=== PATIENT | male | born 1960 | race African-American/Black ===

== ENCOUNTER 2019-12-27 13:57 | Emergency (ER) | payer MEDICAID ==
[~2019-12-27] VITALS: Ht 190.5 cm; Wt 109.0 kg
[2019-12-27] MEDS ORDERED: KETOROLAC 60MG/2ML VIAL IM ONE (14:30)
[2019-12-27] MEDS ORDERED: HYDROCODONE/ACETAMINOPHEN 5/325MG TABLET PO ONE (14:30)
[2019-12-27] MEDS ORDERED: DIAZEPAM 5 MG TABLET PO ONE (14:30)
[2019-12-27 15:27] VITALS: BP 148/70
== END 2019-12-27 15:33 | disposition home or self-care (01) ==
LOC: ER 13:57
DX: M54.41 Lumbago with sciatica, right side (principal); G89.29 Other chronic pain; I10 Essential (primary) hypertension
CPT/HCPCS: 96372; 99283; J1885